=== PATIENT | male | born 1985 | race Caucasian/White ===

== ENCOUNTER 2021-03-26 12:53 | Emergency (ER) | payer BC ==
[~2021-03-26] VITALS: Ht 177.8 cm; Wt 93.0 kg
[2021-03-26] MEDS ORDERED: ALLOPURINOL100 MG PO (13:11)
[2021-03-26] MEDS ORDERED: ESCITALOPRAM OX10 MG PO (13:11)
[2021-03-26] MEDS ORDERED: PROPRANOLOL HC120 MG PO (13:11)
[2021-03-26] MEDS ORDERED: ATIVAN1 MG PO (13:15)
--- NOTE | 2021-03-27 09:08 | EKG ---
[facility] [address] [facility] [place] [address] Signed Normal sinus rhythm Possible Left atrial enlargement Borderline ECG No previous ECGs available Confirmed by DEVENDRA GARZA MD ([id number] on 03/27/2021 9:08:44 AM Electronically Signed By: DEVENDRA GARZA MD 03/27/2108 PATIENT NAME: NICOLASA COLLIER PULIDO Electrocardiogram DATE OF : 85 PHYSICIAN: DEVENDRA GARZA MD REPORT #: [id number] REPORT IS CONFIDENTIAL AND NOT TO BE RELEASED WITHOUT AUTHORIZATION
== END 2021-03-26 13:54 | disposition home or self-care (01) ==
LOC: ED 12:53
DX: F41.0 Panic disorder [episodic paroxysmal anxiety] (principal); F43.9 Reaction to severe stress, unspecified; Z88.5 Allergy status to narcotic agent
CPT/HCPCS: 93005; 93010; 99283-25; A9270-GY